=== PATIENT | male | born 1995 | race Caucasian/White ===

== ENCOUNTER → 2020-10-07 | Outpatient (REF) | payer OTHER | LOC: M SMT 11:08 | PROVIDERS: ATTEND Urology | DX: Z30.2 Encounter for sterilization (principal) ==

== ENCOUNTER → 2020-12-03 | Outpatient (REF) | payer OTHER ==
[2020-12-03 13:50] LABS: SEMEN APPEARANCE OPAQUE (OPAQUE); SEMEN VISCOSITY LIQUID (LIQUID); SEMEN VOLUME 3.3 ml (2.0-5.0); SEMEN pH 8.5 (7.0-8.0); WBC CONCENTRATION >1 M/ml (<=1 M/ml)
== END ==
LOC: M SMT 13:40
PROVIDERS: ATTEND Urology
DX: Z30.8 Encounter for other contraceptive management (principal)

== ENCOUNTER 2021-01-05 09:20 | Emergency (ER) | payer OTHER ==
[~2021-01-05] VITALS: Ht 170.2 cm; Wt 84.5 kg
--- NOTE | 2021-01-05 11:55 | REP ---
INDICATION: right testicular pain/swellilng. COMPARISON: None. TECHNIQUE: Bilateral testicular ultrasound with color flow Doppler FINDINGS: Right testicle measures 4.2 x 2.4 x 2.8 cm and left measures 4.6 x 2.1 x 2.4 cm. There is no evidence of a mass, hydrocele, or significant spermatocele on either side. Increased blood flow is seen within the right testicle and particularly the right epididymis compared to the left side. There is no evidence of a varicocele. There is a right testicular RI is 0.49 left is 0.69 IMPRESSION: Evidence of right-sided epididymal orchitis <Electronically signed by Daniel Carmona > 01/05/21 2445
[2021-01-05] MEDS ORDERED: LIDOCAINE 1% SDV 5ML VIAL DILUENT ONE (12:40)
[2021-01-05] MEDS ORDERED: cefTRIAXone 500MG VIAL (J0696 PER 250MG) IM ONE (12:40)
[2021-01-05] MEDS ORDERED: DOXY100C37 PO (12:42)
[2021-01-05 12:44] VITALS: BP 132/75
[2021-01-05 13:13] LABS: CHLAMYDIA DNA AMPLIFICATION NEGATIVE (NEGATIVE); GC DNA AMPLIFICATION NEGATIVE (NEGATIVE)
== END 2021-01-05 13:04 | disposition home or self-care (01) ==
LOC: M ED 09:20
DX: N45.1 Epididymitis (principal); N45.2 Orchitis
CPT/HCPCS: 76870; 81001; 87661; 93976; 96372; 99283; J0696